=== PATIENT | female | born 1930 | race Caucasian/White ===

== ENCOUNTER 2018-10-19 01:39 | Emergency (ER) | payer MEDICARE ==
[2018-10-19] MEDS ORDERED: LORazepam TAB(*) 1 MG PO ONE (01:48)
--- NOTE | 2018-10-19 01:52 | ED ---
Syncope/Near Syncope - HPI Summary HPI Summary: This patient is an 88 year old F brought in by ambulance with a chief complaint of insomnia for the last week. She felt like she was about to pass out when she called the ambulance. Patient reports sore throat and decreased appetite. Patient denies chills. EMS reports that she appears anxious but denies so when asked. She was able to open the door and walk around when EMS got to her home. The last doctor she has seen is retired, she has not had medical care for over 6 years. She has no family or friends in the area. PMHX none. SHX lives alone. RX none. Vitals in the room: HR 89 bpm, BP 164/96. - History Of Current Complaint Time Seen by Provider: 10/19/18 01:46 Hx Obtained From: Patient, EMS Onset/Duration: Lasting Weeks - 1 Associated Signs And Symptoms: Decreased Oral Intake - Allergies/Home Medications Allergies/Adverse Reactions: Allergies Allergy/AdvReac Type Severity Reaction Status Date / Time No Known Allergies Allergy Verified 10/19/18 02:09 Home Medications: Home Medications Multivitamins 1 tab PO DAILY 10/19/18 [History Confirmed 10/19/18] PMH/Surg Hx/FS Hx/Imm Hx Previously Healthy: Yes - she says she has no PMHx - Family History Known Family History: Positive: None - Social History Lives: Alone Review of Systems Negative: Chills Positive: Sore Throat, Other - decreased appetite Neurological: Other - insomnia the past week All Other Systems Reviewed And Are Negative: Yes Physical Exam - Summary Physical Exam Summary: Appearance: Well-appearing, Well-nourished, lying in bed comfortably Skin: Warm, dry, no obvious rash Eyes: sclera anicteric, no conjunctival pallor ENT: mucous membranes moist, pharynx appears normal Neck: Supple, nontender Respiratory: Clear to auscultation, no signs of respiratory distress Cardiovascular: Normal S1, S2. No murmurs. Normal distal pulses in tibial and radial bilaterally. Abdomen: Soft, nontender, normal active bowel sounds present Musculoskeletal: Normal, Strength/ROM Intact Neurological: A&Ox3, awake and alert, mentation is normal, speech is fluent and appropriate Psychiatric: affect is normal, does not appear anxious or depressed Triage Information Reviewed: Yes Vital Signs Reviewed: Yes Diagnostics - Laboratory Result Diagrams: 10/19/18 01:58 12/21/18 01:58 Lab Statement: Any lab studies that have been ordered have been reviewed, and results considered in the medical decision making process. - EKG 02:00 Cardiac Rate: NL - 74 bpm EKG Rhythm: Sinus Rhythm Summary of EKG Findings: P waves, QRS complex, and T waves are within normal limits, T waves and intervals are normal, no ischemic changes. Re-Evaluation - Re-Evaluation First Eval Re-Evaluation Time: 04:56 Change: Unchanged Comment: I was called to see the patient due to a fall. She apparently tried to climb over the side rails and became caught up in the bedding. She does not appear to have suffered any injury consequent to this fall. She has no complaints. She was observed to be ambulating just fine up to the bathroom earlier. Course/Dx Course Of Treatment: This patient is an 88 year old F brought in by ambulance with a chief complaint of insomnia for the last week. She felt like she was about to pass out when she called the ambulance. Patient reports sore throat and decreased appetite. Patient denies chills. An EKG reveals NSR 74, P waves, QRS complex, and T waves are within normal limits, T waves and intervals are normal, no ischemic changes. Test results with no significant abnormalities. In the ED course the patient was given Lorazepam. Patient will be discharged [facility]. The patient is agreeable with this plan. - Diagnoses Provider Diagnoses: Insomnia Discharge - Sign-Out/Discharge Documenting (check all that apply): Patient Departure - discharged - Discharge Plan Condition: Good Disposition: HOME Patient Education Materials: Insomnia (ED) Referrals: [facility] [Outside] Additional Instructions: Try taking melatonin, available over the counter, for your insomnia. - Billing Disposition and Condition Condition: GOOD Disposition: Home - Attestation Statements Document Initiated by Scribe: Yes Documenting Scribe: Justin Lopez Provider For Whom Melvin is Documenting (Include Credential): Juan Acevedo MD Scribe Attestation: Justin Chavez, scribed for Juan Acevedo MD on 10/21/18 at 1107. Scribe Documentation Reviewed: Yes Provider Attestation: The documentation as recorded by the Justin [email or web address] accurately reflects the service I personally performed and the decisions made by me, Juan Acevedo MD Status of Scribe Document: Viewed
[2018-10-19 02:10] LABS: ABS Basophils 0.1 10^3/ul (0-0.2); ABS Eosinophils 0.1 10^3/ul (0-0.6); ABS Lymphocytes 0.7 10^3/ul (1.0-4.8); ABS Monocytes 0.7 10^3/ul (0-0.8); ABS Neutrophils 7.9 10^3/ul (1.5-7.7); ABS Nucleated RBC 0 10^3/ul; Eosinophil % 1.4 %; Hematocrit 42 % (35-47); Lymphocyte % 7.3 %; Mean Corpuscular HGB Conc 33 g/dl (31-36); Mean Corpuscular Hemoglobin 30 pg (27-31); Mean Corpuscular Volume 90 fL (80-97); Mean Platelet Volume 7.8 fL (7.4-10.4); Nucleated Red Blood Cells % 0; Platelet Count 217 10^3/ul (150-450); Red Blood Count 4.71 10^6/ul (4.00-5.40); Red Cell Distribution Width 14 % (10.5-15); White Blood Count 9.4 10^3/ul (3.5-10.8)
[2018-10-19 02:25] LABS: Albumin 3.6 g/dL (3.2-5.2); Albumin/Globulin Ratio 1.6 (1-3); BUN/Creatinine Ratio 31.7 (8-20); Calcium 9.1 mg/dL (8.6-10.3); EGFR Non-African American 94.3 (>60); Globulin 2.3 g/dL (2-4); Potassium 3.9 mmol/L (3.5-5.0); Total Bilirubin 0.5 mg/dL (0.2-1.0); Total Protein 5.9 g/dL (6.4-8.9)
[2018-10-19 02:46] LABS: TSH (Thyroid Stimulating Horm) 1.86 mcIU/mL (0.34-5.60)
[2018-10-19 05:19] VITALS: BP 148/73
== END 2018-10-19 05:43 | disposition home or self-care (01) ==
LOC: ED 01:39
DX: G47.00 Insomnia, unspecified (principal); Z60.2 Problems related to living alone
CPT/HCPCS: 36415; 80053; 83605; 84443; 85025; 93005; 99283; A9270-GY

== ENCOUNTER 2018-10-26 18:38 | Inpatient (IN) | payer MEDICARE ==
[2018-10-26] MEDS ORDERED: NS 0.9% 1000 ML* 1,000 ML IV ONE (19:20)
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
[2018-10-26 19:39] LABS: ABS Basophils 0.1 10^3/ul (0-0.2); ABS Eosinophils 0 10^3/ul (0-0.6); ABS Lymphocytes 0.4 10^3/ul (1.0-4.8); ABS Monocytes 0.8 10^3/ul (0-0.8); ABS Neutrophils 10.5 10^3/ul (1.5-7.7); ABS Nucleated RBC 0 10^3/ul; Eosinophil % 0.1 %; Hematocrit 45 % (35-47); Hemoglobin 14.9 g/dl (12.0-16.0); Lymphocyte % 3.5 %; Mean Corpuscular HGB Conc 33 g/dl (31-36); Mean Corpuscular Hemoglobin 30 pg (27-31); Mean Corpuscular Volume 90 fL (80-97); Mean Platelet Volume 7.6 fL (7.4-10.4); Nucleated Red Blood Cells % 0; Platelet Count 245 10^3/ul (150-450); Red Blood Count 4.98 10^6/ul (4.00-5.40); Red Cell Distribution Width 14 % (10.5-15); White Blood Count 11.8 10^3/ul (3.5-10.8)
[2018-10-26 19:55] LABS: ALT 25 U/L (7-52); AST 28 U/L (13-39); Albumin/Globulin Ratio 1.6 (1-3); Alkaline Phosphatase 57 U/L (34-104); Anion Gap 5 mmol/L (2-11); BUN/Creatinine Ratio 31.5 (8-20); Blood Urea Nitrogen 23 mg/dL (6-24); CO2 Carbon Dioxide 30 mmol/L (22-32); Calcium 9.6 mg/dL (8.6-10.3); Chloride 104 mmol/L (101-111); EGFR Non-African American 75.2 (>60); Globulin 2.5 g/dL (2-4); Glucose 111 mg/dL (70-100); Potassium 4.3 mmol/L (3.5-5.0); Sodium 139 mmol/L (135-145); Total Protein 6.5 g/dL (6.4-8.9)
[2018-10-26 20:11] LABS: Alcohol < 10 mg/dL (<10)
[2018-10-26 20:27] LABS: Urine Appearance Cloudy; Urine Bacteria 1+ (Absent); Urine Bilirubin Negative (Negative); Urine Blood Negative (Negative); Urine Color Yellow; Urine Glucose Negative (Negative); Urine Ketones Trace (Negative); Urine Nitrite Negative (Negative); Urine Protein 1+(30 mg/dL) (Negative); Urine Red Blood Cell 1+(3-5/hpf) (Absent); Urine Specific Gravity 1.018 (1.010-1.030); Urine Urobilinogen Negative (Negative); Urine White Blood Cell 1+(6-10/hpf) (Absent)
[2018-10-26] MEDS ORDERED: cefTRIAXone(*) 1 GM in NS 0.9% 50 ML* 50 ML IVPB ONE (20:28)
[2018-10-26] MEDS ORDERED: Calcium Carbonate CHEW TAB* 500 MG (TUMS) PO PRN (21:02)
[2018-10-26] MEDS ORDERED: Ondansetron ODT TAB* 4 MG SL PRN (21:03)
[2018-10-26] MEDS ORDERED: Acetaminophen TAB* 325 MG PO PRN (21:03)
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
[2018-10-26] MEDS: Heparin VIAL(*) 5000 UNITS/ML VIAL (FIVE THOUSAND) SUBCUT SCH (23:38)
[2018-10-27] MEDS: Heparin VIAL(*) 5000 UNITS/ML VIAL (FIVE THOUSAND) SUBCUT SCH ×3 (05:21→21:07)
--- NOTE | 2018-10-27 13:37 | PN ---
Subjective Date of Service: 10/27/18 Interval History: Confusion improving.Alert oriented this am.Has a sitter Objective Active Medications: Acetaminophen (Tylenol Tab*) 650 mg PO Q6H PRN PRN Reason: PAIN Calcium Carbonate (Tums*) 500 mg PO Q4H PRN PRN Reason: INDIGESTION Last Admin: 10/26/18 23:38 Dose: 500 mg Heparin Sodium (Porcine) (Heparin Vial(*)) 5,000 units SUBCUT Q8HR [facility] Last Admin: 10/27/18 05:21 Dose: 5,000 units Ceftriaxone Sodium 1 gm/ (Sodium Chloride) 50 mls @ 200 mls/hr IVPB Q24H [facility] Ondansetron HCl (Zofran Odt Tab*) 4 mg SL Q6H PRN PRN Reason: NAUSEA/VOMITING Vital Signs - 8 hr 10/27/18 10/27/18 08:53 11:35 Temperature 98.2 F 98.3 F Pulse Rate 84 80 Respiratory 16 18 Rate Blood Pressure 132/41 134/59 (mmHg) O2 Sat by Pulse 94 98 Oximetry Oxygen Devices in Use Now: None Eyes: No Scleral Icterus Ears/Nose/Mouth/Throat: NL Teeth, Lips, Gums Neck: NL Appearance and Movements; NL JVP Respiratory: Symmetrical Chest Expansion and Respiratory Effort Cardiovascular: NL Sounds; No Murmurs; No JVD Abdominal: NL Sounds; No Tenderness; No Distention Extremities: No Edema Skin: No Rash or Ulcers Neurological: Alert and Oriented x 3 Result Diagrams: 10/26/18 19:30 10/26/18 19:30 Assess/Plan/Problems-Billing Assessment: - Patient Problems (1) UTI (urinary tract infection) Current Visit: Yes Status: Acute Comment: Will await urine culture and blood cultures Was very confused with hallucinations yesterday and was unsafe Has a sitter in room Improved today, based on progress will decide if she needs further psych eval or improved with med management of uti continue ceftriaxone (2) Altered mental status Current Visit: Yes Status: Acute Code(s): R41.82 - ALTERED MENTAL STATUS, UNSPECIFIED SNOMED Code(s): 221749558 Comment: Sec uti Pl see above (3) Hallucinations Current Visit: Yes Status: Acute Code(s): R44.3 - HALLUCINATIONS, UNSPECIFIED SNOMED Code(s): 9685393 Comment: Will evaluate if she has any sun downing and another episode in the hospital Status and Disposition: PT/OT evaluation
[2018-10-27] MEDS: cefTRIAXone(*) 1 GM in NS 0.9% 50 ML* 50 ML IVPB SCH (19:20)
[2018-10-28] MEDS ORDERED: Ziprasidone IM INJ* 20 MG/ML VIAL IM ONE (03:36)
[2018-10-28] MEDS: Heparin VIAL(*) 5000 UNITS/ML VIAL (FIVE THOUSAND) SUBCUT SCH ×3 (04:44→20:00)
[2018-10-28 09:54] LABS: ABS Basophils 0.1 10^3/ul (0-0.2); ABS Eosinophils 0.1 10^3/ul (0-0.6); ABS Lymphocytes 0.9 10^3/ul (1.0-4.8); ABS Monocytes 0.5 10^3/ul (0-0.8); ABS Neutrophils 5.7 10^3/ul (1.5-7.7); ABS Nucleated RBC 0 10^3/ul; Hematocrit 45 % (35-47); Mean Corpuscular HGB Conc 33 g/dl (31-36); Mean Corpuscular Hemoglobin 30 pg (27-31); Mean Corpuscular Volume 90 fL (80-97); Mean Platelet Volume 7.8 fL (7.4-10.4); Nucleated Red Blood Cells % 0; Platelet Count 239 10^3/ul (150-450); Red Blood Count 5.01 10^6/ul (4.00-5.40); Red Cell Distribution Width 14 % (10.5-15); White Blood Count 7.2 10^3/ul (3.5-10.8)
[2018-10-28 10:24] LABS: BUN/Creatinine Ratio 28.8 (8-20); EGFR Non-African American 96.2 (>60)
--- NOTE | 2018-10-28 13:58 | PN ---
Subjective Date of Service: 10/28/18 Interval History: Reports that she is worried about her cats at home.Denies any complaints.Wants to go home. Per d/w nursing, pt sun downed last night and was trying to eat her IV tubing and was confused.Doing well this am Objective Active Medications: Acetaminophen (Tylenol Tab*) 650 mg PO Q6H PRN PRN Reason: PAIN Calcium Carbonate (Tums*) 500 mg PO Q4H PRN PRN Reason: INDIGESTION Last Admin: 10/26/18 23:38 Dose: 500 mg Heparin Sodium (Porcine) (Heparin Vial(*)) 5,000 units SUBCUT Q8HR [facility] Last Admin: 10/28/18 04:44 Dose: Not Given Ceftriaxone Sodium 1 gm/ (Sodium Chloride) 50 mls @ 200 mls/hr IVPB Q24H [facility] Last Admin: 10/27/18 19:20 Dose: 200 mls/hr Ondansetron HCl (Zofran Odt Tab*) 4 mg SL Q6H PRN PRN Reason: NAUSEA/VOMITING Vital Signs - 8 hr 10/28/18 10/28/18 09:30 09:31 Temperature 97 F 97.0 F Pulse Rate 87 Respiratory 22 22 Rate Blood Pressure 115/59 115/59 (mmHg) O2 Sat by Pulse 98 Oximetry Oxygen Devices in Use Now: None Ears/Nose/Mouth/Throat: NL Teeth, Lips, Gums Neck: NL Appearance and Movements; NL JVP Respiratory: Symmetrical Chest Expansion and Respiratory Effort Cardiovascular: NL Sounds; No Murmurs; No JVD Abdominal: NL Sounds; No Tenderness; No Distention Extremities: No Edema Skin: No Rash or Ulcers Neurological: Alert and Oriented x 3 Result Diagrams: 10/28/18 09:26 10/28/18 09:26 Microbiology and Other Data: Microbiology 10/26/18 20:02 Urine Culture - Final Urine Assess/Plan/Problems-Billing Assessment: - Patient Problems (1) UTI (urinary tract infection) Current Visit: Yes Status: Acute Comment: Will await urine culture and blood cultures Was very confused with hallucinations yesterday and unsafe for discharge home without ensuring her home environment is safe and she has the support.Lives by herself Has a sitter in room Improved today, based on progress will decide if she needs further psych eval or improved with med management of uti continue ceftriaxone (2) Altered mental status Current Visit: Yes Status: Acute Code(s): R41.82 - ALTERED MENTAL STATUS, UNSPECIFIED SNOMED Code(s): 014674457 Comment: Sec uti Pl see above (3) Hallucinations Current Visit: Yes Status: Acute Code(s): R44.3 - HALLUCINATIONS, UNSPECIFIED SNOMED Code(s): 1336783 Comment: Will evaluate if she has any sun downing and another episode in the hospital Status and Disposition: PT/OT evaluation
[2018-10-28 15:05] LABS: Urine Appearance Cloudy; Urine Bacteria Absent (Absent); Urine Bilirubin Negative (Negative); Urine Blood Negative (Negative); Urine Color Yellow; Urine Glucose Negative (Negative); Urine Ketones Trace (Negative); Urine Nitrite Negative (Negative); Urine Protein Negative (Negative); Urine Red Blood Cell Absent (Absent); Urine Specific Gravity 1.015 (1.010-1.030); Urine Urobilinogen Negative (Negative); Urine White Blood Cell 1+(6-10/hpf) (Absent)
[2018-10-28] MEDS: cefTRIAXone(*) 1 GM in NS 0.9% 50 ML* 50 ML IVPB SCH (19:53)
[2018-10-29] MEDS: Heparin VIAL(*) 5000 UNITS/ML VIAL (FIVE THOUSAND) SUBCUT SCH ×3 (05:38→20:04)
[2018-10-29] MEDS ORDERED: LORazepam INJ* 2 MG/ML 1 ML VIAL IV PUSH ONE (06:13)
[2018-10-29] MEDS ORDERED: LORazepam INJ* 2 MG/ML 1 ML VIAL ONE (06:18)
[2018-10-29 07:30] LABS: ABS Basophils 0 10^3/ul (0-0.2); ABS Eosinophils 0.1 10^3/ul (0-0.6); ABS Lymphocytes 0.8 10^3/ul (1.0-4.8); ABS Monocytes 0.6 10^3/ul (0-0.8); ABS Neutrophils 5.4 10^3/ul (1.5-7.7); ABS Nucleated RBC 0 10^3/ul; Eosinophil % 1.6 %; Hematocrit 41 % (35-47); Hemoglobin 13.5 g/dl (12.0-16.0); Lymphocyte % 11.8 %; Mean Corpuscular HGB Conc 33 g/dl (31-36); Mean Corpuscular Hemoglobin 30 pg (27-31); Mean Corpuscular Volume 90 fL (80-97); Mean Platelet Volume 8.3 fL (7.4-10.4); Nucleated Red Blood Cells % 0; Platelet Count 218 10^3/ul (150-450); Red Blood Count 4.53 10^6/ul (4.00-5.40); Red Cell Distribution Width 14 % (10.5-15); White Blood Count 6.9 10^3/ul (3.5-10.8)
[2018-10-29 07:47] LABS: BUN/Creatinine Ratio 30.9 (8-20); Calcium 8.7 mg/dL (8.6-10.3); EGFR Non-African American 104.3 (>60); Potassium 3.7 mmol/L (3.5-5.0)
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
[2018-10-29] MEDS: cefTRIAXone(*) 1 GM in NS 0.9% 50 ML* 50 ML IVPB SCH (20:04)
[2018-10-30] MEDS: Heparin VIAL(*) 5000 UNITS/ML VIAL (FIVE THOUSAND) SUBCUT SCH ×3 (04:04→20:45)
[2018-10-30] MEDS ORDERED: LORazepam INJ* 2 MG/ML 1 ML VIAL IV PUSH ONE (04:10)
[2018-10-30] MEDS ORDERED: LORazepam INJ* 2 MG/ML 1 ML VIAL ONE (04:11)
[2018-10-30] MEDS ORDERED: Haloperidol INJ IV/IM* 5 MG/ML AMP IV SLOW PU ONE (04:53)
[2018-10-30] MEDS ORDERED: Haloperidol INJ IV/IM* 5 MG/ML AMP ONE (04:55)
--- NOTE | 2018-10-30 13:13 | CONSULT ---
Consult Consult: Psychiatry consulted to assess for capacity. S: Patient is an 88-yo wf, domiciled, single, retired who lives alone in [facility] on [address] in [place]. Patient was found wandering in the [place] and voiced paranoid ideation. Patient was admitted to medicine to rule out delirium. Today, patient is alternately lying down or sitting in chair. She is pleasant upon approach and easy to establish rapport. She denies depressed mood or a history of mental health care. She endorses living independently, including cooking for self, caring for her homestead and driving. She states she has heat and running water but has not had a working hot water heater for nearly two years. She states she uses the cold setting on her washing machine and boils water to wash herself and dishes. She expresses desire to return home and to resume her normal routines. O: Patient is well-groomed and dressed in her own clothing with a scarf for a head wrap. She is A+Ox3. She appears to be a reliable historian. She answers questions fully and cooperatively. Her eye contact is good, speech is normal in all spheres. Memory is 3/3 and concentration is good. She scores 29/30 on MMSE, only missing the day of the week. Thought processes are logical and goal- directed. Thought content is negative for SI/HI/ or passive wish. She denies AH or VH and there are no observed perceptual disturbances. Fund of knowledge is adequate. A: 88yo wf, domiciled, single with no known psychiatric history who presented to ED via police after she phoned them with concerns of being robbed. She reported being found in the [place] by police. She was treated for UTI and AMS by hospitalist service. She currently presents as A+O with capacity to make medical decisions at this time. She endorses living alone and caring for herself independently. Plan/Recommendations: Consider utilizing SW to involve APS for discharge planning. No further psychiatric treatment at this time. Thank you for the opportunity to meet this reny woman.
--- NOTE | 2018-10-30 16:57 | PN ---
Subjective Date of Service: 10/30/18 Interval History: Judi is anxious to get home. She has no complaints. She was evaluated by psych who assessed her to have capacity to make the decision to leave the hospital without further treatment. I discharged her and when her RN went to discharge her, she discovered that Ernesto has no keys to her house. When asked how she would pay for the cab, she said she thinks she has money in her trailer but she doesn't know. Objective Active Medications: Acetaminophen (Tylenol Tab*) 650 mg PO Q6H PRN PRN Reason: PAIN Last Admin: 10/29/18 22:50 Dose: 650 mg Calcium Carbonate (Tums*) 500 mg PO Q4H PRN PRN Reason: INDIGESTION Last Admin: 10/26/18 23:38 Dose: 500 mg Heparin Sodium (Porcine) (Heparin Vial(*)) 5,000 units SUBCUT Q8HR LALO Last Admin: 10/30/18 14:49 Dose: Not Given Ceftriaxone Sodium 1 gm/ (Sodium Chloride) 50 mls @ 200 mls/hr IVPB Q24H ON LICENSE OF [facility] Last Admin: 10/29/18 20:04 Dose: 200 mls/hr Vital Signs - 8 hr 10/30/18 10/30/18 11:12 15:36 Temperature 98.0 F 98.2 F Pulse Rate 90 81 Respiratory 16 18 Rate Blood Pressure 131/69 149/63 (mmHg) O2 Sat by Pulse 99 98 Oximetry Oxygen Devices in Use Now: None Appearance: alert, well appearing, no distress. expresses appropriate concerns and thoughts. Eyes: No Scleral Icterus Ears/Nose/Mouth/Throat: NL Teeth, Lips, Gums Neck: NL Appearance and Movements; NL JVP Respiratory: Symmetrical Chest Expansion and Respiratory Effort, Clear to Auscultation Cardiovascular: NL Sounds; No Murmurs; No JVD, RRR Abdominal: NL Sounds; No Tenderness; No Distention Lymphatic: No Cervical Adenopathy Extremities: No Edema Skin: No Rash or Ulcers Neurological: Alert and Oriented x 3, NL Gait, - Result Diagrams: 10/29/18 06:45 10/29/18 06:45 Microbiology and Other Data: Microbiology 10/26/18 20:02 Urine Culture - Final Urine Assess/Plan/Problems-Billing Assessment: This is an 88 year old female with ?history of dementia who lives alone and has not been under medical care and presented to the ED after she was found by the police wandering in the [facility] - Patient Problems (1) Altered mental status Current Visit: Yes Status: Acute Code(s): R41.82 - ALTERED MENTAL STATUS, UNSPECIFIED SNOMED Code(s): 417109264 Comment: May have had some delirium at admission that caused her to be roaming her neighborhood, but she did not have a convincing UTI or metabolic explanation of her delirium that seems to have no resolved She has some good insight but also expresses paranoia and I cannot confirm or deny her concerns She was evaluated by psych today who deemed her able to make her own decisions We have canceled the discharge due to unsafe conditions and inability to get in to her own house Needs SW evaluation tomorrow (2) UTI (urinary tract infection) Current Visit: Yes Status: Acute Comment: completed 3 days of ceftriaxone; culture is negative Status and Disposition: needs SW prior to discharge
[2018-10-30] MEDS: cefTRIAXone(*) 1 GM in NS 0.9% 50 ML* 50 ML IVPB SCH (20:28)
--- NOTE | 2018-10-30 20:43 | DS ---
DISCHARGE SUMMARY: DATE OF ADMISSION: 10/26/18 DATE OF DISCHARGE: 10/30/18 CHIEF COMPLAINT: Found wandering. HISTORY OF PRESENT ILLNESS/HOSPITAL COURSE: This is an 88-year-old female with no medical history, who sees no doctors, who was found by the police wandering in her neighborhood. She reported concern about someone invading her trailer and expressed some paranoid ideations, though we do not know whether these ideations are paranoid or truly well founded. She was admitted to the hospitalist service and was found to have a leukocytosis and a mildly positive UA, so there was concern for acute delirium related to sepsis. She met SIRS criteria at admission with a urinary source; however, her urine culture returned as mixed ivelisse. Still, she was treated with antibiotics and her mentation improved. She did experience sundowning and required ativan for agitation on some nights, but at the time of discharge is mentating very clearly. She was evaluated by Psychiatry for capacity. She was deemed to have capacity to make the decision to leave the hospital and she wanted no further treatment or care or evaluation and so, we attempted to discharge her on . When her nurse went to discharge her, Judi reported having no keys and no money so the discharge was deferred as it was deemed unsafe. She will stay to met with SW tomorrow. PRINCIPAL DISCHARGE DIAGNOSES: 1. Delirium. 2. Sepsis. 3. Urinary tract infection. MEDICATIONS AT THE TIME OF DISCHARGE: None. TIME SPENT: 40 minutes were spent on this discharge. [id number]/[facility] #: [id number] [place]
[2018-10-31] MEDS: Heparin VIAL(*) 5000 UNITS/ML VIAL (FIVE THOUSAND) SUBCUT SCH (05:23)
[2018-10-31 11:56] VITALS: BP 131/59
--- NOTE | 2018-10-31 12:53 | DS ---
CC: [facility].* DISCHARGE SUMMARY: DATE OF ADMISSION: DATE OF DISCHARGE: 10/31/18 HOSPITAL COURSE: This 88-year-old woman came in with a chief complaint of "I have been robbed." I believe the police brought her in. She may have called the police initially. The exact details are not clear to me. In any event, the patient was evaluated. She is on no home medications. She was initially found to have UTI; however, the urine culture was no growth. She was given 3 days of IV ceftriaxone. Although she is not functioning at 100%, it was felt that she would be safe at home. She will have APS see her, someone will come to accompany her home and make sure she can get in the door and that the door had been locked. She had some friends to take care of her cats while she was here. She has a very little social support as far as I can tell. She was discharged on no medications. She should follow up with [facility]. FINAL DIAGNOSIS: Altered mental status. DISCHARGE MEDICATIONS: None. [id number]/[facility] #: [id number] [place]
== END 2018-10-31 16:30 | disposition home or self-care (01) | DRG 872 ==
LOC: ED 18:38 → UNDOADMOB 21:01 → MED 21:01 → OBSVTOIN 10-27 11:24
PROVIDERS: ADMIT Internal Medicine; ATTEND Internal Medicine
DX: A41.9 Sepsis, unspecified organism (principal); N39.0 Urinary tract infection, site not specified; R44.3 Hallucinations, unspecified; R41.0 Disorientation, unspecified
CPT/HCPCS: 36415; 70450; 80048; 80053; 80320; 81003; 81015; 83605; 84484; 85025; 87040; 87086; 99283; A9270-GY; G0480; G8978-GP-CH; G8979-GP-CH; G8980-GP-CH; G8987-GO-CI; G8988-GO-CI; J0696; J1630; J1644; J2060; J3486